=== PATIENT | female | born 1990 | race Caucasian/White ===

== ENCOUNTER 2022-08-06 15:04 | Emergency (ER) | payer MEDICARE, SELFPAY ==
--- NOTE | 2022-08-06 15:17 | ED.GENADULT ---
HPI - General Adult General Chief complaint: Allergic Reaction Stated complaint: allergic reaction Time Seen by Provider: 08/06/22 15:17 Source: patient and RN notes reviewed Mode of arrival: ambulatory Limitations: no limitations History of Present Illness HPI narrative: 31-year-old female presents to the [facility] with a generalized rash from head to toe, lip and tongue swelling with sloughing of skin. 101 fever. Tachycardic. Patient reports that she was on Bactrim starting on the did not take it a couple of days and restarted it over the weekend. Started was a minor rash on Tuesday and has gradually gotten worse where her lips and tongue started to swell today, peeling. Onset (ago): day(s) (3) Related Data Home Medications Medication Instructions Recorded Confirmed cephalexin 500 mg capsule 500 mg DIRECTED 08/06/22 08/06/22 methylprednisolone 4 mg tablets in 4 mg DIRECTED 08/06/22 08/06/22 a dose pack Allergies Allergy/AdvReac Type Severity Reaction Status Date / Time fluoxetine Allergy Anxiety Verified 08/06/22 15:28 grass pollen Allergy Watery Eye Verified 08/06/22 15:28 sertraline Allergy Anxiety Verified 08/06/22 15:28 Review of Systems Review of Systems: All systems reviewed & are unremarkable except as noted in HPI and below Constitutional: Constitutional: Reports as per HPI, Denies chills, Reports fatigue and Reports fever(s) Eyes: Eyes: Reports as per HPI ENT: Reports as per HPI Cardiovascular: Cardiovascular: Reports no additional cardiovascular complaints Respiratory: Respiratory: Reports no additional respiratory complaints Gastrointestinal: Gastrointestinal: Reports no additional gastrointestinal complaints Musculoskeletal: Musculoskeletal: Reports no additional musculoskeletal complaints Integumentary/Breasts: Skin/Breast: Reports as per HPI Neurologic: Reports system reviewed and no additional complaints, except as documented Psychiatric: Psychiatric: Reports no additional psychiatric complaints Allergic/Immunologic: Allergic/Immunologic: Reports no additional allergic/immunologic complaints [facility] Past Medical History Medical History (Updated 08/06/22 @ 15:41 by Selam Powers APRN) Patient denies medical problems Surgical History Surgical History (Updated 08/06/22 @ 15:40 by Selam Powers APRN) No pertinent past surgical history Social History Social History (Updated 08/06/22 @ 15:41 by Selam A. Topper, UX INTERACTION DESIGNER) Living arrangements: with family Gender identity (if verbalized by the patient): Female Comments At the time of my signature, I reviewed and agree with the nursing past medical, surgical, social, and family history. There is no relevant family history pertinent to the patient complaint. Exam Const: General: no acute distress, alert and ill appearing acutely Nutritional Appearance: thin Orientation/consciousness: patient oriented x3 Limitations: no limitations HENMT: Head: normal to inspection Ears: external ears normal Mouth: Yes lip abnormal (Swelling and sloughing of skin), Yes muffled voice and Yes Abnormal oral and palatal mucosa present erythematous, edematous and white patches Eyes: General: appearance normal, both eyes and all related structures Conjunctivae: conjunctival abnormality bilateral conjunctival injection and discharge and diffuse Pupils: Equal, round and reactive pupils present Neck: Neck: normal visual inspection, no lymphadenopathy and no meningeal signs Chest: Chest palpation & inspection: normal inspection of the chest Resp: Effort & Inspection: normal respiratory effort and no use of accessory muscles Auscultation: clear to auscultation bilaterally, no crackles, no rales, no rhonchi and no wheezes Cardio: Rate: tachycardic Rhythm: regular rhythm Back/Spine/Pelvis: Cervical Spine: normal cervical lordosis Thoracic/Lumbar Spine: thoracic and lumbar spine normal to inspection Skin: General skin exam: norm
[2022-08-06 15:19] VITALS: BP 117/77; PULSE 117; RESP 18; TEMP 38.6; O2SAT 100
== END 2022-08-06 15:45 | disposition short-term general hospital (02) ==
PROVIDERS: Emergency Provider Nurse Practitioner
DX: L51.1 Stevens-Johnson syndrome (principal); T36.8X5A Adverse effect of other systemic antibiotics, initial encounter
CPT/HCPCS: 99205; G0463

== ENCOUNTER 2024-03-18 21:37 | Emergency (ER) | payer OTHER, SELFPAY ==
--- NOTE | ~2024-03-18 | XR_ITS ---
Portable chest x-ray Comparison: None Clinical History: Chest pain Findings: Lungs are clear, without focal consolidation or pleural effusion. Cardiomediastinal silho uette is unremarkable. Bones and soft tissues are unremarkable. Impression: Clear lungs. Reviewed, dictated and finalized at location M. Impression: Clear lungs.
[2024-03-18 21:46] VITALS: BP 114/77; PULSE 91; RESP 24; TEMP 36.5; O2SAT 100
--- NOTE | 2024-03-18 22:16 | ECG_ITS ---
SEE SCANNED COPY FOR CONFIRMED REPORT MTDD
--- NOTE | 2024-03-18 22:34 | PC.NURSE ---
unable to get EKG at this time due to patient shivering. provided patient with 3 warm blankets and educated to notify staff when they are willing to do ekg. while walking in the room family states patient just took prescription hydroxyzine 50mg. educated patient to hold off on any further eating, drinking, or home medications until provider gives orders.
[2024-03-18 22:44] VITALS: BP 116/99; O2SAT 100
--- NOTE | 2024-03-18 22:45 | ED.ANXIETY ---
HPI - Anxiety General Chief Complaint: Anxiety <LIDIA Ortega Last Filed: 03/19/24 04:12> Stated Complaint: anxiety <LIDIA Ortega Last Filed: 03/19/24 04:12> Time Seen by Provider: 03/18/24 22:00 <LIDIA Ortega Last Filed: 03/19/24 04:12> History of Present Illness HPI narrative: 33-year-old female with reported history of bipolar disorder and anxiety presents via EMS to emergency department with family at bedside for chest pain that occurred prior to arrival. Patient states she was eating steak for dinner when she began having chest pain, shortness of breath and vomiting. Upon my evaluation she is shivering and diaphoretic, very anxious appearing. Patient states she has had panic attacks in the past and this is similar, however she has not had chest pain like this before. She has been vomiting as well and reports numbness in her hands. She reports a cough, denies fever. Denies hemoptysis, recent surgery hospitalizations, history of VTE, lower extremity edema. She denies recent medication changes. She took hydroxyzine prior to EMS arrival. She is requesting anxiety and nausea medications. <LIDIA Ortega Last Filed: 03/19/24 04:12> Related Data Home Medications: Home Medications Medication Instructions Recorded Confirmed cephalexin 500 mg capsule 500 mg DIRECTED 08/06/22 08/06/22 methylprednisolone 4 mg tablets in 4 mg DIRECTED 08/06/22 08/06/22 a dose pack <LIDIA Ortega Last Filed: 03/19/24 04:12> Allergies/Adverse Reactions: Allergies Allergy/AdvReac Type Severity Reaction Status Date / Time fluoxetine Allergy Anxiety Verified 08/06/22 15:28 grass pollen Allergy Watery Eye Verified 08/06/22 15:28 sertraline Allergy Anxiety Verified 08/06/22 15:28 sulfamethoxazole Allergy Other Verified 03/18/24 23:29 [From Bactrim] trimethoprim [From Bactrim] Allergy Other Verified 03/18/24 23:29 <LIDIA Ortega Last Filed: 03/19/24 04:12> Review of Systems Review of Systems: CONSTITUTIONAL: Denies fever, chills, or sweats. EYES: Denies visual changes, redness, or discharge. ENT: Denies rhinorrhea, congestion, sore throat, or otalgia. CARDIOVASCULAR: See HPI RESPIRATORY: See HPI GASTROINTESTINAL: Denies abdominal pain, nausea, vomiting, or diarrhea. GENITOURINARY: Denies dysuria or hematuria. SKIN: Denies rash or itching. MUSCULOSKELETAL: Denies back pain, joint pain, or myalgia. NEUROLOGIC: Denies headache, numbness, or weakness. PSYCHIATRIC: See HPI <Jess Swanson PA-C - Last Filed: 03/19/24 04:12> [facility] Past Medical History Medical History: Medical History Patient denies medical problems <Jess Swanson PA-C - Last Filed: 03/19/24 04:12> Surgical History Surgical History: Surgical History No pertinent past surgical history <Jess Swanson PA-C - Last Filed: 03/19/24 04:12> Social History Social History: Social History Substance use type: prescription drug Living arrangements: with family Gender identity (if verbalized by the patient): Female <Jess Swanson PA-C - Last Filed: 03/19/24 04:12> Exam Narrative: GENERAL: Very anxious, diaphoretic, pale, shaking. HEAD: Normocephalic, atraumatic. EYES: PERRLA and EOMI. ENT: Nares clear, no rhinorrhea or epistaxis. Mucous membranes moist. NECK: Supple. CHEST: Clear to auscultation. No respiratory distress. Speaking in full sentences and satting 100% on room air. HEART: Regular rate and rhythm. No murmur heard. Normal peripheral pulses. ABDOMEN: Soft, nontender, nondistended, normal active bowel sounds. EXTREMITIES: Normal range of motion. No edema. SKIN: Warm, dry, no rash. NEURO: No focal deficits. Alert and oriented x3
[2024-03-18 22:46] VITALS: BP 103/76; O2SAT 100
[2024-03-18 23:08] LABS: Basophils Percent Auto 0.3 % (0.2-1.2); Eosinophils Absolute Auto 0.1 K/mm3 (0-0.3); Eosinophils Percent Auto 0.5 % (0-4.4); Hematocrit 36.3 % (37.0-47.0); Hemoglobin 12.3 g/dL (12.0-15.0); Immature Granulocyte Absolute 0.06 K/mm3 (0.00-0.031); Immature Granulocyte Percent A 0.5 % (0-0.5); Lymphocytes Absolute Auto 0.75 K/mm3 (0.9-3.2); Lymphocytes Percent Auto 5.8 % (18.3-44.2); Mean Corpuscular HGB Conc 33.9 g/dl (32-36); Mean Corpuscular Hemoglobin 30.7 pg (26-34); Mean Corpuscular Volume 90.5 fl (80-100); Mean Platelet Volume 12.3 fl (7.4-10.4); Monocytes Absolute Auto 0.8 K/mm3 (0.1-0.6); Monocytes Percent Auto 6.3 % (2.6-8.5); Neutrophils Absolute Auto 11.2 K/mm3 (1.3-6.7); Neutrophils Percent Auto 86.6 % (45.5-73.1); Platelet Count Result 174 k/mm3 (150-375); Red Blood Count 4.01 M/mm3 (4.2-5.4); Red Cell Distribution Width 12.4 % (11.5-14.5); White Blood Count 12.9 K/mm3 (4.5-10.0)
[2024-03-18] MEDS: LORazepam INJ (*CRX) 2 MG/ML VIAL 1 MG IV PUSH (23:29)
[2024-03-18] MEDS: SODIUM CHLORIDE 0.9% IV 1,000 ML 999 ML IV CONT (23:29)
[2024-03-18] MEDS: ONDANSETRON INJ 4 MG/2 ML VIAL IV PUSH (23:29)
[2024-03-18 23:35] VITALS: BP 110/50; PULSE 77; RESP 18; O2SAT 100
[2024-03-18 23:36] VITALS: PULSE 102; RESP 31; O2SAT 100
--- NOTE | 2024-03-18 23:37 | PC.NURSE ---
patient is unable to urinate at this time and decline straight catheter. educated patient to use call light with any urge to urinate for a sample
[2024-03-18 23:39] LABS: Troponin I < 0.012 ng/mL (0.000-0.034)
[2024-03-18 23:45] VITALS: PULSE 89; RESP 17; O2SAT 99
--- NOTE | 2024-03-18 23:45 | PC.NURSE ---
care and report given to RODOLFO Diaz. all questions answered.
[2024-03-18 23:49] LABS: Alanine Aminotransferase 69 U/L (6-35); Albumin Level 4.1 g/dL (3.5-5.1); Alkaline Phosphatase 95 U/L (38-126); Anion Gap 9 mmol/L (4-12); Aspartate Amino Transferase 151 U/L (14-36); Bilirubin,Total 0.5 mg/dL (0.2-1.3); Blood Urea Nitrogen 8 mg/dL (7-17); Calcium 8.8 mg/dL (8.4-10.2); Carbon Dioxide 24 mmol/L (22-30); Chloride 101 mmol/L (98-107); Estimated CRCL calculation 97 ml/min; Estimated Glomerular Filt Rate > 60; Glucose 158 mg/dL (65-110); Lipase 51 U/L (23-300); Potassium 3.1 mmol/L (3.4-5.0); Sodium 134 mmol/L (137-145)
[2024-03-19] VITALS (8 sets, daily range): BP systolic 110–193; BP diastolic 68–138; PULSE 68–95; RESP 15–35; O2SAT 98–100
[2024-03-19 00:23] LABS: Influenza A QL RT-PCR Negative (Negative); Influenza B QL RT-PCR Negative (Negative); RSV RNA, RT-PCR Negative (Negative); SARS-CoV-2 RNA PCR Negative (Negative)
--- NOTE | 2024-03-19 01:06 | PC.NURSE ---
RN wheeled pt to rest room in wheelchair. Pt voided into the toilet. Pt wheeled back to her room. Upon arrival to room visitors state did you pee? Pt verbalized that yes i peed visitor asked if pt gave a sample and pt verbalized NO . ORTEGA Draper updated and ordered a blood test.
[2024-03-19 01:46] LABS: Beta HCG Quantitative < 2.39 mIU/ML
[2024-03-19 02:03] LABS: Partial Thromboplastin Time 24.2 Seconds (22.3-36.8)
[2024-03-19] MEDS: SODIUM CHLORIDE 0.9% IV 1,000 ML 999 ML IV CONT (02:20)
[2024-03-19] MEDS: POTASSIUM CHLORIDE 20 MEQ PACKET (FOR LIQUID) 40 MEQ PO (02:20)
[2024-03-19 02:32] LABS: INR 1.1; Prothrombin Time 14.4 Seconds (11.1-14.7)
[2024-03-19 02:33] LABS: D Dimer 0.29 ug/mL (<0.48)
[2024-03-19 02:42] LABS: Ethanol < 10 mg/dL (<10)
[2024-03-19 03:40] LABS: Appearance Urine Clear (Clear); Bacteria Urine None Seen /hpf; Bilirubin Urine Negative (Negative); Blood Urine Negative (Negative); Color Urine Yellow (Yellow); Glucose Urine UA Negative (Negative); Ketones Urine 1+ mg/dL (Negative); Leukocyte Esterase Ur Negative LEU/UL (Negative); Nitrate Urine Negative (Negative); Non Pathogenic Casts 0-2; Protein Urine Trace mg/dL (Negative); RBC Urine 0-2 /hpf (0-2); Specific Grav Ur 1.019 (1.001-1.035); Squamous Epithelial Cell Urine Occasional /hpf (Few); pH Urine 8.5 (5.0-9.0)
[2024-03-19 03:44] LABS: Add Urine Microscopic? YES
[2024-03-19 03:55] LABS: Amphetamine Screen Urine Negative (Negative); Barbiturate Screen Urine Negative (Negative); Benzodiazepines Screen Urine Negative (Negative); Cannabinoid Screen Urine Positive (Negative); Cocaine Screen Urine Negative (Negative); Methadone Screen Urine Negative (Negative); Opiate Screen Urine Negative (Negative); Phencyclidine Screen Urine Negative (Negative)
[2024-03-19] MEDS: HALOPERIDOL LACTATE 5 MG/ML VIAL IM (04:31)
== END 2024-03-19 06:15 | disposition home or self-care (01) ==
PROVIDERS: Emergency Provider Physician Assistant
DX: R11.10 Vomiting, unspecified (principal); F12.90 Cannabis use, unspecified, uncomplicated; Z20.822 Contact with and (suspected) exposure to COVID-19; I45.10 Unspecified right bundle-branch block
CPT/HCPCS: 36415; 71045; 80053; 80307; 81001; 83690; 84484; 84702; 85025; 85380; 85610; 85730; 87086; 87637; 93005; 96360; 96361; 96372; 96374; 96375; 99284; A9270; J1630; J2060; J2405; J7030